=== PATIENT | female | born 1950 | race Two or more races ===

== ENCOUNTER 2025-02-12 12:53 | Emergency (ER) | payer OTHER ==
[~2025-02-12] VITALS: Ht 154.9 cm; Wt 59.0 kg
[2025-02-12] MEDS ORDERED: IRBESARTAN-HCT1 EACH (13:05)
[2025-02-12] MEDS ORDERED: ARICEPT10 MG (13:05)
[2025-02-12] MEDS ORDERED: ESTAZOLAM1 MG (13:05)
[2025-02-12] MEDS ORDERED: MEMANTINE HCL E21 MG (13:06)
[2025-02-12] MEDS ORDERED: ATORVASTATIN CA10 MG (13:06)
[2025-02-12] MEDS ORDERED: TOPROL XL50 M1 (13:06)
[2025-02-12] MEDS ORDERED: B COMPLEX1 EACH (13:06)
[2025-02-12] MEDS ORDERED: 0.9 % SODIUM CHLORIDE 1,000 ML IV ONE (13:30)
[2025-02-12 13:49] LABS: EOS # 0.12 (0.04-0.54); EOS % 1.9 % (0.7-7.0); HEMATOCRIT 32.3 % (34.1-44.9); HEMOGLOBIN 10.7 g/dL (11.2-15.7); LYMPH # 2.17 (1.18-3.74); LYMPH % 34.9 % (19.3-53.1); MEAN CORPUSCULAR HEMOGLOBIN 30.1 pg (25.6-32.2); NEUT # 3.36 (1.56-6.13); PLATELET COUNT 264 K/uL (163-369); RED BLOOD COUNT 3.56 M/uL (3.93-5.22); RED CELL DISTRIBUTION WIDTH 13.2 % (11.6-14.4)
[2025-02-12 14:10] LABS: INR 0.98; PARTIAL THROMBOPLASTIN TIME 23.5 SECONDS (22.0-34.0); PROTHROMBIN TIME 10.7 SECONDS (9.0-11.5)
[2025-02-12 14:11] LABS: ALBUMIN 3.9 gm/dL (3.4-5.0); BILIRUBIN TOTAL 0.32 mg/dL (0.3-1.2); CALCIUM 9.9 mg/dL (8.5-10.1); CREATININE SERUM 1.24 mg/dL (0.55-1.02); GFR 42.17; GLOBULINA 3.9 G/DL (2.4-3.5); POTASSIUM 4.37 mEq/L (3.5-5.1); TOTAL PROTEIN 7.8 gm/dL (6.4-8.2)
[2025-02-12 14:25] LABS: URINE APPEARANCE Clear; URINE BILIRRUBIN Negative (NEGATIVE); URINE BLOOD Negative; URINE COLOR Dark Yellow; URINE GLUCOSE Negative (NEGATIVE); URINE KETONE Negative (NEGATIVE); URINE LEUKOCYTE Trace; URINE NITRATE Negative; URINE PROTEIN Negative (NEGATIVE); URINE UROBILINOGEN 0.2 E.U./dl
[2025-02-12 14:28] LABS: URINE BACTERIA 179.8 uL (0.0-1933); URINE EPITHELIAL CELLS 11.3 uL (0.0-38.8); URINE RBC 6.1 uL (0.0-20.8); URINE WBC 43.6 uL (0.0-23.2)
[2025-02-12 14:40] LABS: COVID-19 AG NEGATIVE (NEGATIVE)
[2025-02-12 14:44] LABS: INFLUENZA A AG NEGATIVE (NEGATIVE); INFLUENZA B AG NEGATIVE (NEGATIVE)
[2025-02-12 15:15] LABS: URINE CAST 0.88 uL (0.0-1.40)
[2025-02-12] MEDS ORDERED: BACTRIM DS TAB1 EACH PO (15:20)
[2025-02-12] MEDS ORDERED: PEPCID AC20 MG PO (15:20)
== END 2025-02-12 16:38 | disposition home or self-care (01) ==
LOC: ER 13:52
PROVIDERS: General Practice
DX: R53.1 Weakness (principal); R42 Dizziness and giddiness; Z20.822 Contact with and (suspected) exposure to COVID-19; I10 Essential (primary) hypertension
CPT/HCPCS: 36415; 70450; 71045; 93005; 93041; 96365; 96366; 99284; J7030

== ENCOUNTER 2025-02-19 22:09 | Emergency (ER) | payer OTHER ==
[~2025-02-19] VITALS: Ht 160 cm; Wt 59.0 kg
[~2025-02-19 22:09] MED LIST: ARICEPT10 MG; ATORVASTATIN CA10 MG; B COMPLEX1 EACH; BACTRIM DS TAB1 EACH PO; ESTAZOLAM1 MG; IRBESARTAN-HCT1 EACH; MEMANTINE HCL E21 MG; PEPCID AC20 MG PO; TOPROL XL50 M1
[2025-02-20 01:54] LABS: BASO % 1.2 % (0.1-1.2); HEMATOCRIT 31.1 % (34.1-44.9); HEMOGLOBIN 10.3 g/dL (11.2-15.7); LYMPH # 2.08 (1.18-3.74); MEAN CORPUSCULAR HEMOGLOBIN 29.3 pg (25.6-32.2); MONO # 0.55 (0.24-0.82); MONO % 8.2 % (4.7-12.5); NEUT # 3.79 (1.56-6.13); NEUT % 56.5 % (34.0-71.1); PLATELET COUNT 267 K/uL (163-369); RED BLOOD COUNT 3.51 M/uL (3.93-5.22); RED CELL DISTRIBUTION WIDTH 13.5 % (11.6-14.4)
[2025-02-20 02:37] LABS: BILIRUBIN TOTAL 0.21 mg/dL (0.3-1.2); CALCIUM 9.5 mg/dL (8.5-10.1); CREATININE SERUM 1.1 mg/dL (0.55-1.02); GFR 48.42; GLOBULINA 3.6 G/DL (2.4-3.5); POTASSIUM 4.46 mEq/L (3.5-5.1); TOTAL PROTEIN 7.6 gm/dL (6.4-8.2)
[2025-02-20 03:13] LABS: URINE APPEARANCE Clear; URINE BILIRRUBIN Negative (NEGATIVE); URINE BLOOD Negative; URINE COLOR Yellow; URINE GLUCOSE Negative (NEGATIVE); URINE KETONE Negative (NEGATIVE); URINE LEUKOCYTE Trace; URINE NITRATE Negative; URINE PROTEIN Negative (NEGATIVE); URINE UROBILINOGEN 0.2 E.U./dl
[2025-02-20 03:18] LABS: URINE BACTERIA 6.1 uL (0.0-1933); URINE EPITHELIAL CELLS 2.5 uL (0.0-38.8); URINE RBC 3.5 uL (0.0-20.8)
== END 2025-02-20 05:01 ==
LOC: ER 22:16
PROVIDERS: General Practice
DX: R42 Dizziness and giddiness (principal); I10 Essential (primary) hypertension

== ENCOUNTER 2025-02-27 23:30 | Emergency (ER) | payer OTHER ==
[~2025-02-27] VITALS: Ht 154.9 cm; Wt 59.0 kg
[2025-02-28] MEDS ORDERED: 0.9 % SODIUM CHLORIDE 1,000 ML IV STA (00:20)
[2025-02-28 00:43] LABS: BASO % 1.1 % (0.1-1.2); EOS # 0.23 (0.04-0.54); EOS % 3.5 % (0.7-7.0); LYMPH # 2.63 (1.18-3.74); LYMPH % 40.0 % (19.3-53.1); MEAN PLATELET VOLUME 11.00 fl (9.4-12.4); MONO # 0.49 (0.24-0.82); MONO % 7.4 % (4.7-12.5); NEUT # 3.15 (1.56-6.13); NEUT % 47.8 % (34.0-71.1); RED CELL DISTRIBUTION WIDTH 13.4 % (11.6-14.4)
[2025-02-28 01:03] LABS: INR 0.99
[2025-02-28 02:14] LABS: ALT/SGPT 21.0 U/L (12-78); AST/SGOT 17.0 U/L (15-37); BILIRUBIN TOTAL 0.15 mg/dL (0.3-1.2); BUN CREA RATIO 17.0 (7.0-25.0); CREATININE SERUM 0.78 mg/dL (0.55-1.02); GFR 72.0; GLOBULINA 2.8 G/DL (2.4-3.5); GLUCOSE FASTING 111.0 mg/dL (65-100); OSMOLALITY SERUM 282.0 MOSM/KG (275-295)
[2025-02-28 02:15] LABS: TSH 4.98 uIU/mL (0.358-3.74)
[2025-02-28 02:22] LABS: ABG PH 7.374 (7.35-7.45); ABG PO2 83.6 mmHg (80-100); BICARBONATE 27.2 mmol/l (23-25)
[2025-02-28] MEDS ORDERED: CLOPIDOGREL BISULFATE 75 MG TABLET PO STA (04:28)
[2025-02-28] MEDS ORDERED: NITROGLYCERIN 0.4 MG/HR PATCH.TD24 TD STA (04:28)
[2025-02-28] MEDS ORDERED: ASPIRIN 81 MG TAB.CHEW PO STA (04:29)
[2025-02-28 05:20] LABS: URINE APPEARANCE Clear; URINE BILIRRUBIN Negative (NEGATIVE); URINE BLOOD Negative; URINE COLOR Yellow; URINE GLUCOSE Negative (NEGATIVE); URINE KETONE Negative (NEGATIVE); URINE LEUKOCYTE Trace; URINE NITRATE Negative; URINE PROTEIN Negative (NEGATIVE); URINE UROBILINOGEN 0.2 E.U./dl
[2025-02-28 05:25] LABS: URINE BACTERIA 17.9 uL (0.0-1933); URINE WBC 10.2 uL (0.0-23.2)
[2025-02-28 05:44] LABS: URINE CAST 0.00 uL (0.0-1.40); URINE EPITHELIAL CELLS 0.4 uL (0.0-38.8); URINE RBC 0.5 uL (0.0-20.8)
[2025-02-28 06:23] LABS: o2 21 %
== END 2025-02-28 06:31 | disposition home or self-care (01) ==
LOC: ER 23:30
DX: I95.89 Other hypotension (principal); I10 Essential (primary) hypertension; F03.90 Unspecified dementia, unspecified severity, without behavioral disturbance, psychotic disturbance, mood disturbance, and anxiety

== ENCOUNTER 2025-03-08 12:08 | Emergency (ER) | payer OTHER ==
[~2025-03-08] VITALS: Ht 157.5 cm; Wt 60.3 kg
[2025-03-08 13:45] LABS: BASO % 0.9 % (0.1-1.2); EOS # 0.08 (0.04-0.54); EOS % 1.5 % (0.7-7.0); LYMPH # 1.98 (1.18-3.74); LYMPH % 36.4 % (19.3-53.1); MEAN PLATELET VOLUME 11.30 fl (9.4-12.4); MONO # 0.46 (0.24-0.82); MONO % 8.5 % (4.7-12.5); NEUT # 2.86 (1.56-6.13); NEUT % 52.5 % (34.0-71.1); RED CELL DISTRIBUTION WIDTH 13.9 % (11.6-14.4)
[2025-03-08 14:26] LABS: ALT/SGPT 23.0 U/L (12-78); AST/SGOT 22.0 U/L (15-37); BILIRUBIN TOTAL 0.24 mg/dL (0.3-1.2); BUN CREA RATIO 20.0 (7.0-25.0); CREATININE SERUM 0.79 mg/dL (0.55-1.02); GFR 70.95; GLOBULINA 3.7 G/DL (2.4-3.5); GLUCOSE FASTING 92.0 mg/dL (65-100); OSMOLALITY SERUM 284.0 MOSM/KG (275-295)
== END 2025-03-08 14:47 | disposition home or self-care (01) ==
LOC: ER 12:08
PROVIDERS: General Practice
DX: I95.89 Other hypotension (principal); I10 Essential (primary) hypertension; R53.1 Weakness